=== PATIENT | male | born 1960 | race Caucasian/White ===

== ENCOUNTER 2017-04-22 22:24 | Emergency (ER) | payer BC, OTHER ==
[2017-04-22 23:18] VITALS: BP 157/97; PULSE 86; TEMP 97.1; BMI 26.4
[2017-04-23] MEDS ORDERED: FLUORESCEIN NA 1 EA STRIP ONE (00:29)
[2017-04-23] MEDS ORDERED: TETRACAINE 0.5% OPHTH SOLN 2 ML BOTTLE ONE (00:30)
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
== END 2017-04-23 00:53 | disposition home or self-care (01) ==
LOC: JER 22:24
PROC: 4A07X0Z Measurement of Visual Acuity, External Approach (ICD-10-PCS; principal; 2017-04-22)
DX: H53.8 Other visual disturbances (principal)
CPT/HCPCS: 99282-25